=== PATIENT | male | born 1970 | race Caucasian/White ===

== ENCOUNTER 2025-09-02 16:26 | Emergency (ER) | payer SELFPAY ==
[2025-09-02 16:29] VITALS: BP 171/97
--- NOTE | 2025-09-02 19:23 | ED.SKININJ ---
HPI-Injury
General
Chief Complaint: Skin Surface Trauma
Source: patient
Exam Limitations: none
Time Seen by Provider: 09/02/25 18:53
History of Present Illness-Injury
Initial Injury comments:
55-year-old male presents with laceration to forehead he sustained today. 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 He has been bleeding from his forehead wound since then. No headache or loss
conscious. He believes his vaccines are up-to-date. No other complaints
Past History
Past History
ED Past Medical History: GERD
ED Past Surgical History: None
Social History
Tobacco: Non-smoker
Alcohol: Occasional
Drug: None
Personal:
Living: with family
Employment: Employed
Phy Exam
Physical Exam
Physical Exam:
General: Well-appearing male no acute respiratory distress
HEENT normal cephalic 3 cm T-shaped laceration right superior forehead with mild bleeding pupils equal round reactive to light
Neurologic exam: Normal gait conversing appropriately no unilateral deficit
Musculoskeletal exam: The spine is nontender
Course
Vital Signs
Initial and Last Documented VS:
Initial Vital Signs
Temp Pulse Resp BP Pulse Ox
98 F 65 18 171/97 99
09/02/25 16:29 09/02/25 16:29 09/02/25 16:29 09/02/25 16:29 09/02/25 16:29
Last Documented Vital Signs
Temp Pulse Resp BP Pulse Ox
98 F 65 18 171/97 99
09/02/25 16:29 09/02/25 16:29 09/02/25 16:29 09/02/25 16:29 09/02/25 16:29
MDM/Problems Addressed
Differential Diagnosis Includes:
Laceration left forehead. This was copiously irrigated with saline and anesthetized with 1% lidocaine with epinephrine. The wound was then closed with 5-0 Prolene sutures in a simple interrupted fashion. A total of 7 sutures were required to
provide wound edge approximation and hemostasis. Wound care instructions were given. Stable for discharge.
*Pulse Oximetry
SaO2: 99
Oxygen Mode of Delivery: Room air
Patient hypoxic: no
*Critical Care Note
Total Time (30-74mins, 75-104mins- exclusive of procedures): Not Applicable
ED Attending Note
-
Portions of this chart may have been created with voice recognition software.� Occasional wrong word or��sound alike� substitutions may have occurred due to the inherent limitations of voice recognition software.
Discharge Plan
Departure
Patient Disposition: Home (Routine Discharge)
Date of Disposition: 09/02/25
Time of Disposition: 19:25
Patient with high blood pressure during this ER visit?: No
Discharge Problem:
Laceration
Instructions: Laceration Repair With Stitches (DC)
Prescriptions:
No Action
ibuprofen [Motrin] 600 MG tablet
600 mg PO Q6HPRN PRN (Reason: lternate with percocet) Qty: 40 0RF
omeprazole magnesium [Prilosec OTC] 20 MG tablet,delayed release (DR/EC)
20 mg PO DAILY
Patient Comments:
just ordered new acid reflux name unknown med name to stop prilosec
dhyeuud-mxyescfdxoenz-cyhagyvg [Excedrin Migraine] 1 EACH tablet
2 ea PO PRN (Reason: headache)
amoxicillin-pot clavulanate 1 TABLET tablet
1 tab PO Q12 Qty: 10 0RF
Activity Restrictions/Additional Instructions:
Have sutures removed in 5 to 7 days. Apply antibacterial ointment daily. Change dressing daily
Interventions
Interventions:
*Risk Screen - Suicide Last Done: 09/02/25 16:29
*General Assessment Last Done: 09/02/25 16:29
*ED- Fall Risk Assessment Last Done: 09/02/25 16:29
*ED COVID-19 Vaccine History Last Done: 09/02/25 16:29
*ED Influenza Vaccine History Last Done: 09/02/25 16:29
Discharge Date and Time
Print Language: YI
== END 2025-09-02 19:53 | disposition home or self-care (01) ==
LOC: EMR 16:26
PROVIDERS: EMERGENCY PHYSICIAN Student in an Organized Health Care Education/Training Program; FAMILY PHYSICIAN Physician Assistant Medical
DX: S01.81XA Laceration without foreign body of other part of head, initial encounter (principal); W22.8XXA Striking against or struck by other objects, initial encounter; Y99.0 Civilian activity done for income or pay
CPT/HCPCS: 99282; 12013